=== PATIENT | male | born 1950 | race Caucasian/White ===

== ENCOUNTER 2020-10-12 17:09 | Outpatient (CLI) | payer SELFPAY ==
[2020-10-12 18:43] LABS: Hemoglobin 15.4 g/dL (13.5-17.5); Mean Corpuscular HGB CONC 33.5 g/dL (32.0-36.0); Mean Corpuscular Hemoglobin 29.6 pg (27.0-33.0); Mean Corpuscular Volume 88.5 fl (81.2-95.1); Mean Platelet Volume 11.5 fl (7.4-10.4); Platelet Count 280 10x3/uL (150-450); RBC Distribution Width 12.2 % (11.5-14.5); White Blood Cell (WBC) Count 9.5 10x3/uL (3.5-10.5)
[2020-10-12 18:54] LABS: PTT 26.1 sec (22.0-33.0); Prothrombin Time 10.9 sec (9.5-12.1)
[2020-10-12 18:57] LABS: Anion Gap 18 mmol/L (10-20); BUN (Urea Nitrogen) 16 mg/dL (8.4-25.7); Calc. Creatinine Clearance 0 mL/min (70-130); Calcium 10.2 mg/dL (7.8-10.44); Carbon Dioxide 22 mmol/L (23-31); Chloride 98 mmol/L (98-107); Glucose 101 mg/dL (83-110); Potassium 4.6 mmol/L (3.5-5.1); Sodium 133 mmol/L (136-145)
[2020-10-13 01:15] LABS: SARS-CoV-2 PCR by NAA Not Detected (NotDetected)
== END 2020-10-12 17:10 | disposition home or self-care (01) ==
LOC: LAB 17:09
PROVIDERS: ATTEND Neurological Surgery
DX: Z01.812 Encounter for preprocedural laboratory examination (principal); M50.01 Cervical disc disorder with myelopathy, high cervical region; Z20.822 Contact with and (suspected) exposure to COVID-19
CPT/HCPCS: 80048; 85027; 85610; 85730; 87635; U0003; U0005